=== PATIENT | female | born 1985 | race Caucasian/White ===

== ENCOUNTER 2021-04-18 23:49 | Inpatient (IN) | payer MEDICARE, MEDICAID, SELFPAY ==
[2021-04-19 00:15] VITALS: BP 91/65; PULSE 105; RESP 18; TEMP 36.3; O2SAT 98
[2021-04-19 04:04] VITALS: BMI 35.5
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
--- NOTE | 2021-04-19 06:08 | PC.NURSE ---
Methadone maintenance dose was verified by this TW [facility]. According to Ana Maria Torres at this facility, patient is in good standing, was last dose at 0842 on 04/19/21 at 163 mg daily.
[2021-04-19 08:50] LABS: MANUAL DIFF FLAG NO
[2021-04-19 09:04] LABS: Basophils Percent Auto 0.5 % (0-2); Eosinophils Absolute Auto 0.2 X10*3/uL (0.0-0.4); Hematocrit 38.2 % (37-47); Imm Gran Abs Auto 0.01 X10*3/uL (0.00-0.03); Imm Gran Pct Auto 0.2 % (0.0-0.4); Lymphocytes Absolute Auto 1.8 X10*3/uL (1.2-4.9); Lymphocytes Percent Auto 27.8 % (20-40); Mean Corpuscular Hemoglobin 29.5 pg (27.0-33.0); Mean Corpuscular Volume 86.6 fL (80-98); Mean Platelet Volume 10.7 fL (9.4-12.3); Monocytes Absolute Auto 0.5 X10*3/uL (0.1-1.2); Monocytes Percent Auto 7.2 % (2-11); Neutrophils Absolute Auto 3.9 X10*3/uL (2.0-8.3); Neutrophils Percent Auto 61.3 % (45-73); Platelet Count 210 X10*3/uL (160-400); Red Blood Count 4.41 X10*6/uL (4.20-5.50); White Blood Count 6.4 X10*3/uL (4.8-10.8)
[2021-04-19 09:40] LABS: Alanine Aminotransferase 12 U/L (0-31); Albumin Level 4.2 g/dL (3.5-5.0); Alkaline Phosphatase 86 U/L (39-117); Anion Gap 14 (12-20); Aspartate Amino Transferase 18 U/L (5-31); Bilirubin Total 0.5 mg/dL (0.0-1.0); Blood Urea Nitrogen 12 mg/dL (9-16); Calcium 9.2 mg/dL (8.4-10.2); Carbon Dioxide 26 mmol/L (22-29); Chloride 104 mmol/L (96-108); Creatinine Clr Calc Pharmacy 131.2; Estimated Glomerular Filt Rate > 60; Glucose Fasting 102 mg/dL (60-99); Potassium 4.6 mmol/L (3.3-5.1); Sodium 139 mmol/L (135-145); Total Protein 6.7 g/dL (6.5-8.0)
[2021-04-19] MEDS: LORazepam 1 MG TABLET PO ×2 (10:21→17:41)
[2021-04-19] MEDS: Benztropine Mesylate 1 MG TABLET PO ×2 (10:38→17:42)
[2021-04-19] MEDS: Benztropine Mesylate 2 MG/2 ML VIAL 1 MG IM (10:54)
--- NOTE | 2021-04-19 11:11 | PC.NURSE ---
Patient approached desk reporting my jaw is tight . Reports she is having allergic reaction to Haldol . PO Benztropine 1mg administered with pending effects. Patient continued to C/O clenching jaw, difficulty with swallow. Kirsty Landry REFRIGERATION OPERATOR consulted, order for IM Benztropine obtained and administered. Effects pending. BP 144/84 p132.
--- NOTE | 2021-04-19 11:29 | PC.NURSE ---
Patient reports positive response from IM Benztropine 1mg BP 116/59 P92. No longer clenching jaw. Pain from 10 down to 4.
[2021-04-19 17:25] VITALS: BP 101/51; PULSE 89; TEMP 36.7
[2021-04-19] MEDS: Nicotine Polacrilex 2 MG GUM BUCCAL ×2 (17:35→20:52)
[2021-04-19] MEDS: Acetaminophen 325 MG TABLET 650 MG PO (17:41)
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
[2021-04-19] MEDS: traZODone HCL 50 MG TABLET PO (20:42)
[2021-04-19] MEDS: hydrOXYzine HCL 25 MG TABLET PO (20:43)
[2021-04-20] MEDS: LORazepam 1 MG TABLET PO ×4 (04:50→19:56)
[2021-04-20 06:25] VITALS: BP 88/44; PULSE 77; RESP 18; TEMP 36.4; O2SAT 97
--- NOTE | 2021-04-20 07:06 | PM.EVENT ---
Event Note Date of Service: 04/19/21 Event Note: Tried to see the pt for admission H&P but pt refused to see me
[2021-04-20 10:18] LABS: Cholesterol 210 mg/dL; HDL Cholesterol 30 mg/dL; LDL Cholesterol Calculated 151 mg/dl; Triglycerides 148 mg/dL
[2021-04-20 10:19] LABS: Estimated Average Glucose 105 mg/dL; Hemoglobin A1C 114.7675 umol/L; Hemoglobin A1c % 5.3 %
[2021-04-20 10:53] VITALS: BP 106/58; PULSE 88
[2021-04-20 16:10] VITALS: BP 120/58; PULSE 105; TEMP 37.1
--- NOTE | 2021-04-20 19:24 | HO.PSYCHPN ---
Subjective Subjective Date of Service: 04/20/21 Reason For Visit: PTSD, Opiate Use Disorder Subjective Notes: Conditional Voluntary and 3 Day Healthcare Proxy: No Guardianship: No Medical Problems Affecting Mental Status: No Interim History: Reports anxiety 07/28. Isolative. Denies sx to TW. Hoping for discharge on 04/21. States she came in to re-establish her prescriptions. Medication Compliance: Yes Side effects from medications: No Attending Groups: No Review of Systems Review of Systems Yes all other systems are reviewed and are negative (denies) Reports behavioral changes Psychiatric: Reports behavioral changes and Reports difficulty concentrating Mental Status Exam Mental Status Exam Patient Appearance: Appropriate Patient Orientation: Person, Place, Time and Situation Level of Consciousness: Awake and Alert Patient Behavior: Appropriate and Cooperative Mood Description: Calm Affect Description: Calm Patient Cognition Impaired: No Ability to Follow Directions: Good Speech Pattern: Appropriate and Spontaneous Speech Memory Description: Intact Hallucinations: None Delusions: Not Present Thought Process: Intact Thought Content: positive for Intact Depressive Symptoms: Increased Anxiety (reports to team) Judgement: Fair Diagnostics Vital Signs (24Hr): Vital Signs - 24 hr 04/20/21 06:25 04/20/21 10:53 04/20/21 16:10 Temperature 97.6 F 98.7 F Pulse Rate 77 88 105 H Respiratory Rate 18 Blood Pressure 88/44 L 106/58 L 120/58 L Pulse Oximetry 97 Body Mass Index 35.5 Labs Results: 04/19/21 08:17 04/19/21 08:17 Labs: Laboratory Results - last 48 hr 04/19/21 04/19/21 04/20/21 08:17 08:17 08:42 WBC 6.4 RBC 4.41 Hgb 13.0 Hct 38.2 MCV 86.6 MCH 29.5 MCHC 34.0 RDW 13.0 Plt Count 210 MPV 10.7 Immature Gran % (Auto) 0.2 Neut % (Auto) 61.3 Lymph % (Auto) 27.8 [place] % (Auto) 7.2 Eos % (Auto) 3.0 Baso % (Auto) 0.5 Lymph # (Auto) 1.8 [place] # (Auto) 0.5 Eos # (Auto) 0.2 Baso # (Auto) 0.0 Abs Immat Gran (auto) 0.01 Absolute Neuts (auto) 3.9 Absolute Nucleated RBC 0.000 Nucleated RBC % (auto) 0.0 Sodium 139 Potassium 4.6 Chloride 104 Carbon Dioxide 26 Anion Gap 14 BUN 12 Creatinine 0.72 Estim Creat Clear Calc 131.2 Estimated GFR > 60 Fasting Glucose 102 H Estimat Average Glucose 105 Hemoglobin A1c % 5.3 Calcium 9.2 Total Bilirubin 0.5 AST 18 ALT 12 Alkaline Phosphatase 86 Total Protein 6.7 Albumin 4.2 Triglycerides Cholesterol LDL Cholesterol, Calc HDL Cholesterol 04/20/21 08:42 WBC RBC Hgb Hct MCV MCH MCHC RDW Plt Count MPV Immature Gran % (Auto) Neut % (Auto) Lymph % (Auto) [place] % (Auto) Eos % (Auto) Baso % (Auto) Lymph # (Auto) [place] # (Auto) Eos # (Auto) Baso # (Auto) Abs Immat Gran (auto) Absolute Neuts (auto) Absolute Nucleated RBC Nucleated RBC % (auto) Sodium Potassium Chloride Carbon Dioxide Anion Gap BUN Creatinine Estim Creat Clear Calc Estimated GFR Fasting Glucose Estimat Average Glucose Hemoglobin A1c % Calcium Total Bilirubin AST ALT Alkaline Phosphatase Total Protein Albumin Triglycerides 148 Cholesterol 210 LDL Cholesterol, Calc 151 HDL Cholesterol 30 Medications Medications Current Medications Generic Name Dose Route Start Last Admin Trade Name Freq PRN Reason Stop Dose Admin Acetaminophen 650 mg 04/19/21 06:34 04/19/21 17:41 Acetaminophen 325 Mg Tablet PO 650 mg Q6H PRN Administration Headache/Pain Mild Scale (1-3) Al Hydroxide/Mg Hydroxide 30 ml 04/19/21 06:34 Magnesium Hydrox/Alum Hydrox 30 Ml Oral.Susp PO Q6H PRN Heartburn/Nausea Benztropine Mesylate 1 mg 04/19/21 06:39 04/19/21 17:42 Benztropine Mesylate 1 Mg Tablet PO 1 mg Q4H PRN Administration Extrapyramidal Effects Haloperidol 5 mg 04/19/21 06:39 Haloperidol 5 Mg Tablet PO Q4H PRN anxiety/restlessness Hydroxyzine HCl 25 mg 04/19/21 06:34 04/19/21 20:43 Hydroxyzine Hcl 25 Mg Tablet PO 25 mg BEDTIME PRN Administration Anxiety Lorazepam 1 mg 04/19/21 06:39 04/20/21 15:17 Lorazepam 1 Mg Tablet PO 1 mg Q4H PRN Administration anxiety/restlessness Magnesium Hydroxide 30 ml 04/19/21 06:34 Milk Of Magnesia 30 Ml Oral.Susp PO DAILY PRN Constipation Methadone HCl 160 mg 04/19/21 09:00 04/20/21 09:45 Methadone Hcl 1 Mg/0.1 Ml Oral.Conc PO 160 mg DAILY GAGE Administration Nicotine Polacrilex 2 mg 04/19/21 06:36 04/19/21 20:52 Nicotine Polacrilex 2 Mg Gum BUCCAL 2 mg Q2H PRN Administration Nicotine Cravings Nicotine Polacrilex 2 mg 04/20/21 16:34 Nicotine Polacrilex 2 Mg Gum BUCCAL Q2H PRN Nicotine Cravings Trazodone HCl 50 mg 04/19/21 06:34 04/19/21 20:42 Trazodone Hcl 50 Mg Tablet PO 50 mg BEDTIME PRN Administration Insomnia Allergies Allergies Allergy/AdvReac Type Severity Reaction Status Date / Time clindamycin Allergy Unknown Stomach Verified 04/19/21 05:04 Upset Penicillins Allergy Unknown Unknown Verified 04/19/21 05:04 risperidone [From Risperdal] Allergy Unknown Unknown Verified 04/19/21 05:04 lamotrigine [From Lamictal] AdvReac Unknown Unknown Verified 04/19/21 05:04 Assessment & Plan Assessment & Plan (1) Opioid abuse: Status: Acute Code(s): F11.10 - Opioid abuse, uncomplicated (2) Methadone maintenance therapy patient: Status: Acute Code(s): F11.20 - Opioid dependence, uncomplicated (3) Major depression: Status: Acute Code(s): F32.9 - Major depressive disorder, single episode, unspecified Assessment and Plan: 36 yo female, mother of 4 with reported SI with plan to jump [place] [address] [facility] due to medications being taken. Pt reports she and mother pursued a Section XIIE to help her to get treatment for meds to restart. Plan: Continue current regime Gather collateral information from providers TDN to 04/21/21. Greater than 50% of the session was spent on counseling and/or coordination of care Reason for contiued inpatient stay Substantial Risk for: harm to self, inability to function and rapid decompensation
[2021-04-20] MEDS: hydrOXYzine HCL 25 MG TABLET PO (19:56)
[2021-04-20] MEDS: traZODone HCL 50 MG TABLET PO ×2 (19:56→23:35)
[2021-04-21 06:40] VITALS: BP 99/51; PULSE 72; RESP 18; TEMP 36.2; O2SAT 98
[2021-04-21] MEDS: LORazepam 1 MG TABLET PO ×2 (06:48→10:55)
[2021-04-21] MEDS: Nicotine Polacrilex 2 MG GUM BUCCAL (12:26)
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
== END 2021-04-21 13:06 | disposition home or self-care (01) | DRG 881 ==
PROVIDERS: Psychiatry & Neurology Psychiatry; Admitting Provider Psychiatry & Neurology Psychiatry; Visit Provider Clinical Nurse Specialist Psychiatric/Mental Health, Adult
DX: F32.9 Major depressive disorder, single episode, unspecified (principal); R45.851 Suicidal ideations; F11.20 Opioid dependence, uncomplicated; F43.10 Post-traumatic stress disorder, unspecified; G40.909 Epilepsy, unspecified, not intractable, without status epilepticus; Z88.0 Allergy status to penicillin; Z79.899 Other long term (current) drug therapy
CPT/HCPCS: 36415; 80053; 80061; 83036; 85025; J0515

== ENCOUNTER 2022-02-16 14:22 | Emergency (ER) | payer OTHER, SELFPAY ==
--- NOTE | ~2022-02-16 | CT_ITS ---
EXAMINATION: CT ABDOMEN AND PELVIS WITH CONTRAST CLINICAL INFORMATION: Dysuria and left flank pain. COMPARISON: None TECHNIQUE: Multidetector volumetric images were obtained from the superior aspect of the liver through the pubic symphysis following administration 85 mL of Omnipaque 350 intravenous contrast. Sagittal and coronal reformatted images were obtained on the technologist's workstation. Oral Contrast: No. This CT examination was performed using dose optimization techniques as appropriate, variously including the following: *Automated exposure control. *Adjustment of mA and/or kV according to patient size (this includes techniques or standardized protocols for targeted exams where dose is matched to indication/reason for exam; i.e. extremities or head). *Use of iterative reconstruction technique. DLP: 890 mGy-cm FINDINGS: LUNG BASES: No focal consolidation or pleural effusion. LIVER, GALLBLADDER, AND BILIARY TREE: The liver is enlarged measuring 20.2 cm craniocaudally but is otherwise normal in shape and attenuation without discrete focal abnormalities. There is mild intrahepatic and extrahepatic biliary ductal dilatation with the CBD that measures of to 0.8 cm. No choledocholithiasis is identified. The gallbladder is decompressed limiting assessment of wall thickening. There is however no significant pericholecystic fat stranding or free fluid to suspected acute cholecystitis. No cholelithiasis is identified. PANCREAS: Unremarkable. SPLEEN: The spleen is enlarged measuring 14 cm craniocaudally. No discrete focal abnormalities are identified. ADRENAL GLANDS: Unremarkable. KIDNEYS AND URETERS: The kidneys are normal in size, shape, and attenuation. No hydronephrosis, hydroureter, or calculi seen. No perinephric stranding. BLADDER: Unremarkable. GASTROINTESTINAL TRACT: Small hiatal hernia. Mildly distended stomach filled with debris. The small bowel is nondilated with fecalization of some loops of distal ileum. Normal appendix. No pericolonic inflammatory changes or evidence of bowel obstruction. Moderate colonic and rectal stool burden. ABDOMINAL WALL: No significant hernia is appreciated. LYMPH NODES: Prominent retroperitoneal lymph nodes measuring up to 1 cm in short axis. VASCULAR: Unremarkable. PELVIC VISCERA: Unremarkable. OSSEOUS STRUCTURES: No acute or aggressive-appearing osseous abnormalities. CT/CT abdomen pelvis w con IMPRESSION: 1. Mild nonspecific biliary ductal dilatation without definite choledocholithiasis or obstructive abnormalities. If indicated, correlation with MRCP could be obtained. 2. Indeterminate hepatosplenomegaly. 3. Fecalization of the distal small bowel with moderate colonic and rectal stool burden suggesting slow transit and constipation. 4. Nonspecific borderline enlarged retroperitoneal lymph nodes which in the setting of hepatosplenomegaly could potentially be associated with a lymphomatous neoplasia. However, these are fairly nonspecific and should be follow up depending on patient's risk factors and clinical picture.
[2022-02-16 15:25] VITALS: BP 140/76; PULSE 97; RESP 19; TEMP 36.1; O2SAT 97; BMI 36.3
[2022-02-16 15:47] LABS: UPreg QC Valid YES; Urine Pregnancy NEGATIVE (NEGATIVE)
[2022-02-16 15:48] LABS: Appearance Urine CLOUDY; Color Urine YELLOW; Glucose Urine UA NEG (NEG); Leukocyte Esterase Urine 2+ (NEG); Nitrite Urine POS (NEG); PH 5.5 (5.0-8.0); Specific Gravity - Urine >= 1.030 (1.005-1.025); UACC Culture Trigger YES; Urine Blood TRACE (NEG); Urine Ketones NEG (NEG); Urine Protein NEG (NEG-TRACE)
[2022-02-16 17:23] LABS: Bacteria Urine 3+ /LPF; Squamous Epithelial Cell Urine 3+ /LPF
--- NOTE | 2022-02-16 17:58 | ED_ITS ---
HPI - Female Genitourinary General Chief complaint: Urogenital-Female <JAMI Juarez - Last Filed: 02/16/22 18:21> Stated complaint: UTI? <JAIM Juarez - Last Filed: 02/16/22 18:21> Time Seen by Provider: 02/16/22 17:15 <JAMI Juarez Last Filed: 02/16/22 18:21> Source: patient <JAMI Juarez Last Filed: 02/16/22 18:21> Mode of arrival: ambulatory <JAMI Juarez Last Filed: 02/16/22 18:21> Limitations: no limitations <JAMI Juarez Last Filed: 02/16/22 18:21> History of Present Illness HPI Narrative: 37-year-old female with a past medical history of seizure disorder, major depression, methadone maintenance therapy due to opioid abuse and asthma presenting to the ED with complaints of suprapubic abdominal pain/cramping with associated dysuria/urinary frequency and urgency for the past week and a half and now the suprapubic abdominal pain is radiating to her lower back/left back. She reports over the past 2 days she has developed some chills and fevers. She reports that she has had kidney stones and pyelonephritis in the past. She reports she also has the foul smell to her urine although denies any thoughts of STDs reports that she has not been sexually active in a while and does not believe she has gonorrhea chlamydia therefore she is refusing any STD testing. She reports that she will be tested for bacterial vaginosis/yeast and Trichomonas. She denies any dizziness, headaches, neck pain/stiffness, trouble swallowing or breathing, chest pain or shortness of breath, nausea/vomiting, rashes, recent falls or trauma, hematuria, abnormal vaginal discharge, abnormal lesions or rashes to the vaginal area or anywhere on the body, constipation, black or bloody stools, thoughts of STDs or any other symptoms complaints or concerns at this time. <JAMI Juarez Last Filed: 02/16/22 18:21> MD elicited complaint: dysuria, UTI and back pain <JAMI Juarez Last Filed: 02/16/22 18:21> Pertinent past history: recurrent UTIs and pyelonephritis <JAMI Juarez - Last Filed: 02/16/22 18:21> Onset (ago): week(s) (1.5 weeks ) <JAMI Juarez - Last Filed: 02/16/22 18:21> Severity: moderate <JAMI Juarez - Last Filed: 02/16/22 18:21> Female Urogenital Radiation: L Flank (and back) <JAMI Juarez - Last Filed: 02/16/22 18:21> Severity scale (1-10): 8 <JAMI Juarez - Last Filed: 02/16/22 18:21> Quality of pain: burning and aching <JAMI Juarez - Last Filed: 02/16/22 18:21> Consistency: constant and progressively worsening <JAMI Juarez - Last Filed: 02/16/22 18:21> Vaginal discharge: none <JAMI Juarez - Last Filed: 02/16/22 18:21> Vaginal bleeding: none <JAMI Juarez - Last Filed: 02/16/22 18:21> Urinary symptoms: Dysuria, Urgency, Frequency, Foul Smelling Urine, Difficulty Urinating and Flank Pain <JAMI Juarez - Last Filed: 02/16/22 18:21> Exacerbating factors: urination <JAMI Juarez - Last Filed: 02/16/22 18:21> Relieving factors: none <JAMI Juarez - Last Filed: 02/16/22 18:21> Associated symptoms: abdominal pain and back pain <JAMI Juarez - Last Filed: 02/16/22 18:21> Treatment prior to arrival: none <JAMI Juarez - Last Filed: 02/16/22 18:21> Sexual activity: No <JAMI Juarez - Last Filed: 02/16/22 18:21> Patient : No <JAMI Juarez - Last Filed: 02/16/22 18:21> Related Data Home medications: Home Medications Medication Instructions Recorded Confirmed methadone 163 mg PO DAILY 04/19/21 04/19/21 Previous Rx's Medication Instructions Recorded clonazepam 1 mg tablet 1 tab PO BID #14 tab 04/21/21 gabapentin 600 mg tablet 1 tab PO TID #21 tab 04/21/21 naloxone 4 mg/actuation nasal 4 mg INTRANASAL Q2M PRN #2 ea 04/21/21 spray (Narcan) topiramate 100 mg tablet 1 tab PO DAILY #7 tab 04/21/21 <JAMI Juarez - Last Filed: 02/16/22 18:21> Allergies/Adverse reactions: Allergies Allergy/AdvReac Type Severity Reaction Status Date / Time clindamycin Allergy Unknown Stomach Verified 04/19/21 05:04 Upset Penicillins Allergy Unknown Unknown Verified 04/19/21 05:04 risperidone [From Risperdal] Allergy Unknown Unknown Verified 04/19/21 05:04 lamotrigine [From Lamictal] AdvReac Unknown Unknown Verified 04/19/21 05:04 <JAMI Juarez - Last Filed: 02/16/22 18:21> Review of Systems Review of Systems: Constitutional : + Fever, + Chills ENT/Mouth : No sore throat, No Rhinorrhea Eyes: No Eye Pain, No Redness Cardiovascular : No Chest Pain, No SOB Respiratory : No Cough, No Sputum, No Wheezing Gastrointestinal : + abdominal pain, No Nausea, No Vomiting, No Diarrhea Genitourinary : + Dysuria, + Urinary Frequency, + left flank pain, No pelvic pain, No vaginal discharge, no hematuria, no irregular bleeding Musculoskeletal : + lower back pain, No Myalgias Skin : No rash Neuro : No Weakness, No Headache Psych : No Anxiety/Panic, No Depression Heme/Lymph: No bruising, No Lymphadenopathy Endocrine : No Polyuria, No Polydipsia <JAMI Juarez - Last Filed: 02/16/22 18:21> Yes all other systems are reviewed and are negative <JAMI Juarez - Last Filed: 02/16/22 18:21> [facility] Past Medical History Attestation statement: The following information was validated with the patient. <JAMI Juarez - Last Filed: 02/16/22 18:21> Medical History: Medical History Active asthma delivery delivered Major depression Methadone maintenance therapy patient Opioid abuse Seizure disorder <JAMI Juarez Last Filed: 02/16/22 18:21> Social History Social History: Social History Unable to assess alcohol history related to: Unknown Cigarettes Per Day: 10 Years Smoked: 20 e-Cigarette/Vaping Use: Currently Using Second Hand Smoke Exposure: No Substance Use Type: Heroin Advance Directives: No Advance Directives Information Provided: Yes Patient : No service: No Sexual orientation: Straight/Heterosexual <JAMI Juarez - Last Filed: 02/16/22 18:21> Physical Exam Vital Signs: Vital Signs: Last Vital Signs Temp 97 F 02/16/22 15:25 Pulse 97 02/16/22 15:25 Resp 19 02/16/22 15:25 BP 140/76 H 02/16/22 15:25 Pulse Ox 97 02/16/22 15:25 BMI result Body Mass Index 36.3 vital signs have been reviewed as normal and appeared to be correct. Blood pressure 140/76 Heart rate normal. Respiration rate normal. Temperature normal. Oxygen saturation normal. <JAMI Juarez - Last Filed: 02/16/22 18:21> Vital Signs: Last Vital Signs Temp 97 F 02/16/22 15:25 Pulse 97 02/16/22 15:25 Resp 19 02/16/22 15:25 BP 140/76 H 02/16/22 15:25 Pulse Ox 97 02/16/22 15:25 BMI result Body Mass Index 36.3 <JAMI Powell - Last Filed: 02/16/22 22:56> Appearance: Alert. Oriented X3. No acute distress. Head: Normal external exam. Normocephalic. Eyes: PERRLA. EOMI. Conjunctiva and sclera normal. Eyelids normal. ENT: Pharynx normal. Uvula midline. Moist mucous membranes. No trismus noted. No drooling noted. No muffled voice noted. Neck: Normal inspection. Neck supple. FROM. No adenopathy. No meningeal signs. CVS: Normal heart rate and rhythm. Heart sound normal. No murmurs noted. Pulses normal throughout. Respiratory: No respiratory distress. Painless inspiration. Breath sounds normal. No wheezes/rales/rhonchi noted. Chest nontender. No accessory muscle usage noted or decreased air movement noted. Abdomen: Soft and mild suprapubic abdominal tenderness Nondistended. No guarding. No rigidity. Bowel sounds normal in all 4 quadrants. No distention noted. No organomegaly noted. No visible injury noted. No rebound tenderness. Negative Rovsing sign. Negative obturator's sign. Negative psoas sign. Negative Montes sign. Back: + mild left flank CVA tenderness. Full range of motion noted. No signs of trauma. Patient neuro intact bilaterally and distally in all 4 extremities. Reflexes intact bilaterally and distally in all 4 extremities. No rashes/lesion/induration/fluctuance or signs of infection noted. Skin: Skin warm and dry. Normal skin color. Normal skin turgor. No rashes/lesions/lacerations noted. Extremities: Extremities exhibit normal range of motion. Extremities nontender. Neuro: Oriented X 3. No motor deficit. No sensory deficit. Reflexes normal. Normal steady gait. CN's II-XII intact bilaterally? <JAMI Juarez - Last Filed: 02/16/22 18:21> Course Course Course Narrative: 17:20pm - 37-year-old female with a past medical history of seizure disorder, major depression, methadone maintenance therapy due to opioid abuse and asthma pr esenting to the ED with complaints of suprapubic abdominal pain/cramping with associated dysuria/urinary frequency and urgency for the past week and a half and now the suprapubic abdominal pain is radiating to her lower back/left back. She reports over the past 2 days she has developed some chills and fevers. She reports that she has had kidney stones and pyelonephritis in the past. She reports she also has the foul smell to her urine although denies any thoughts of STDs reports that she has not been sexually active in a while and does not believe she has gonorrhea chlamydia therefore she is refusing any STD testing. She reports that she will be tested for bacterial vaginosis/yeast and Tr ichomonas. - Patient wants to self swab for bacterial vaginosis/yeast/Trichomonas she is refusing a vaginal/speculum exam. - Otherwise a UA was obtained while the patient was in the waiting room and revealed positive nitrates with +2 leukocytes and 76-150 white blood cells consistent with UTI. Patient negative for . Plan: Labs, CT scan abdomen pelvis with IV contrast to evaluate for possible kidney stones versus pyelonephritis. Provide some IV fluids and re-evaluate. <JAMI Juarez - Last Filed: 02/16/22 18:21> Reevaluation(s) Reevaluation #1: Sign out to TANESHA Rodriguez pending labs, CT scan abdomen pelvis with IV contrast. <JAMI Juarez - Last Filed: 02/16/22 18:21> Time: 18:18 <JAMI Juarez Last Filed: 02/16/22 18:21> Reevaluation #2: CBC within normal limits. Chemistry with no acute electrolyte abnormalities. BUN slightly elevated however patient tolerating fluids by mouth. Transaminases slightly elevated. Urine negative. Urine positive for UTI. CT of abdomen and pelvis pending. <JAMI Powell - Last Filed: 02/16/22 22:56> Time: 21:33 <JAMI Powell Last Filed: 02/16/22 22:56> Reevaluation #3: CT of the abdomen pelvis shows nonspecific biliary duct dilation without definite choledocholithiasis or obstructive abnormalities. It shows a paddle splenomegaly. Moderate amount of stool suggesting constipation. And there are enlarged retroperitoneal lymph nodes. CT discussed with patient and attached her discharge though she can follow-up with her PCP. Patient telling staff members that she is homicidal towards her roommate patient is unable to return unless cleared by Psychiatry. Patient feels unsafe to return she does not want to return and she tells staff members here in the emergency department that if she goes back she will start using opiates again and hurt herself. At this time a BH and consult has been put in. Patient has been medically cleared. She was given Levaquin earlier IV. Will continue with antibiotic treatment. At this time patient will be placed in physician observation to allow more time to be evaluated by the behavioral health team. At this time I will start patient on Macrobid p.o. b.i.d. scheduled for UTI. I do not feel comfortable continuing Levaquin since patient is on methadone and Levaquin is a QT prolonging agent. No baseline EKG. At this time will continue on Macrobid p.o. b.i.d.. Patient will be moved to the pot and placed on a Section 12. Will continue to monitor. <JAMI Powell - Last Filed: 02/16/22 22:56> Time: 22:48 <JAMI Powell - Last Filed: 02/16/22 22:56> MDM - Female Genitourinary Medical Records Attestation: I reviewed the patient's medical records. <JAMI Juarez - Last Filed: 02/16/22 18:21> Lab Data Attestation: I reviewed the patient's lab results. <JAMI Juarez - Last Filed: 02/16/22 18:21> Result diagrams: : 02/16/22 18:10 02/16/22 19:43 <JAMI Juarez - Last Filed: 02/16/22 18:21> Labs: Lab Results 02/16/22 02/16/22 02/16/22 Range/Units 15:29 15:29 18:10 WBC 5.5 (4.8-10.8) X10*3/uL RBC 4.20 (4.20-5.50) X10*6/uL Hgb 12.6 (12.0-16.0) g/dl Hct 38.2 (37.0-47.0) % MCV 91.0 (80.0-98.0) fL MCH 30.0 (27.0-33.0) pg MCHC 33.0 (31.0-35.0) g/dl RDW 13.2 (11.0-16.0) % Plt Count 107 L (160-400) X10*3/uL MPV 11.7 (9.4-12.3) fL Immature Gran % (Auto) 0.2 (0.0-0.4) % Neut % (Auto) 50.2 (45-73) % Lymph % (Auto) 34.9 (20-40) % [place] % (Auto) 9.1 (2-11) % Eos % (Auto) 5.1 H (0-4) % Baso % (Auto) 0.5 (0-2) % Lymph # (Auto) 1.9 (1.2-4.9) X10*3/uL [place] # (Auto) 0.5 (0.1-1.2) X10*3/uL Eos # (Auto) 0.3 (0.0-0.4) X10*3/uL Baso # (Auto) 0.0 (0.0-0.2) X10*3/uL Abs Immat Gran (auto) 0.01 (0.00-0.03) X10*3/uL Absolute Neuts (auto) 2.8 (2.0-8.3) x10*3/uL Absolute Nucleated RBC 0.000 (0.0-0.012) X10*3/uL Nucleated RBC % (auto) 0.0 (0.0-0.2) /100WBC Sodium (135-145) mmol/L Potassium (3.3-5.1) mmol/L Chloride (96-108) mmol/L Carbon Dioxide (22-29) mmol/L Anion Gap (12-20) BUN (9-16) mg/dL Creatinine (0.5-1.4) mg/dL Estim Creat Clear Calc Estimated GFR Random Glucose (60-115) mg/dL Lactic Acid (0.5-2.0) mmol/L Calcium (8.4-10.2) mg/dL Magnesium (1.6-2.6) mg/dL Total Bilirubin (0.0-1.0) mg/dL AST (5-31) U/L ALT (0-31) U/L Alkaline Phosphatase (39-117) U/L Total Protein (6.5-8.0) g/dL Albumin (3.5-5.0) g/dL Urine Color YELLOW Urine Appearance CLOUDY Urine pH 5.5 (5.0-8.0) Ur Specific Caret >= 1.030 H (1.005-1.025) Urine Protein NEG (NEG-TRACE) MG/DL Urine Glucose (UA) NEG (NEG) MG/DL Urine Ketones NEG (NEG) MG/DL Urine Blood TRACE (NEG) Urine Nitrite POS H (NEG) Ur Leukocyte Esterase 2+ H (NEG) Urine RBC 1-4 (0) /HPF Urine WBC 76-150 H (0-4) /HPF Ur Squamous Epith Cells 3+ /LPF Urine Bacteria 3+ /LPF Urine Test NEGATIVE (NEGATIVE) 02/16/22 02/16/22 Range/Units 18:10 19:43 WBC (4.8-10.8) X10*3/uL RBC (4.20-5.50) X10*6/uL Hgb (12.0-16.0) g/dl Hct (37.0-47.0) % MCV (80.0-98.0) fL MCH (27.0-33.0) pg MCHC (31.0-35.0) g/dl RDW (11.0-16.0) % Plt Count (160-400) X10*3/uL MPV (9.4-12.3) fL Immature Gran % (Auto) (0.0-0.4) % Neut % (Auto) (45-73) % Lymph % (Auto) (20-40) % [place] % (Auto) (2-11) % Eos % (Auto) (0-4) % Baso % (Auto) (0-2) % Lymph # (Auto) (1.2-4.9) X10*3/uL [place] # (Auto) (0.1-1.2) X10*3/uL Eos # (Auto) (0.0-0.4) X10*3/uL Baso # (Auto) (0.0-0.2) X10*3/uL Abs Immat Gran (auto) (0.00-0.03) X10*3/uL Absolute Neuts (auto) (2.0-8.3) x10*3/uL Absolute Nucleated RBC (0.0-0.012) X10*3/uL Nucleated RBC % (auto) (0.0-0.2) /100WBC Sodium 139 (135-145) mmol/L Potassium 3.9 (3.3-5.1) mmol/L Chloride 105 (96-108) mmol/L Carbon Dioxide 27 (22-29) mmol/L Anion Gap 11 L (12-20) BUN 18 H (9-16) mg/dL Creatinine 0.86 (0.5-1.4) mg/dL Estim Creat Clear Calc 110.1 Estimated GFR > 60 Random Glucose 117 H (60-115) mg/dL Lactic Acid 1.5 (0.5-2.0) mmol/L Calcium 8.6 D (8.4-10.2) mg/dL Magnesium 2.3 (1.6-2.6) mg/dL Total Bilirubin 0.2 (0.0-1.0) mg/dL AST 34 H D (5-31) U/L ALT 57 H (0-31) U/L Alkaline Phosphatase 91 (39-117) U/L Total Protein 6.2 L (6.5-8.0) g/dL Albumin 3.7 (3.5-5.0) g/dL Urine Color Urine Appearance Urine pH (5.0-8.0) Ur Specific Caret (1.005-1.025) Urine Protein (NEG-TRACE) MG/DL Urine Glucose (UA) (NEG) MG/DL Urine Ketones (NEG) MG/DL Urine Blood (NEG) Urine Nitrite (NEG) Ur Leukocyte Esterase (NEG) Urine RBC (0) /HPF Urine WBC (0-4) /HPF Ur Squamous Epith Cells /LPF Urine Bacteria /LPF Urine Test (NEGATIVE) <JAMI Juarez - Last Filed: 02/16/22 18:21> Lab Results 02/16/22 02/16/22 02/16/22 Range/Units 15:29 15:29 18:10 WBC 5.5 (4.8-10.8) X10*3/uL RBC 4.20 (4.20-5.50) X10*6/uL Hgb 12.6 (12.0-16.0) g/dl Hct 38.2 (37.0-47.0) % MCV 91.0 (80.0-98.0) fL MCH 30.0 (27.0-33.0) pg MCHC 33.0 (31.0-35.0) g/dl RDW 13.2 (11.0-16.0) % Plt Count 107 L (160-400) X10*3/uL MPV 11.7 (9.4-12.3) fL Immature Gran % (Auto) 0.2 (0.0-0.4) % Neut % (Auto) 50.2 (45-73) % Lymph % (Auto) 34.9 (20-40) % [place] % (Auto) 9.1 (2-11) % Eos % (Auto) 5.1 H (0-4) % Baso % (Auto) 0.5 (0-2) % Lymph # (Auto) 1.9 (1.2-4.9) X10*3/uL [place] # (Auto) 0.5 (0.1-1.2) X10*3/uL Eos # (Auto) 0.3 (0.0-0.4) X10*3/uL Baso # (Auto) 0.0 (0.0-0.2) X10*3/uL Abs Immat Gran (auto) 0.01 (0.00-0.03) X10*3/uL Absolute Neuts (auto) 2.8 (2.0-8.3) x10*3/uL Absolute Nucleated RBC 0.000 (0.0-0.012) X10*3/uL Nucleated RBC % (auto) 0.0 (0.0-0.2) /100WBC Sodium (135-145) mmol/L Potassium (3.3-5.1) mmol/L Chloride (96-108) mmol/L Carbon Dioxide (22-29) mmol/L Anion Gap (12-20) BUN (9-16) mg/dL Creatinine (0.5-1.4) mg/dL Estim Creat Clear Calc Estimated GFR Random Glucose (60-115) mg/dL Lactic Acid (0.5-2.0) mmol/L Calcium (8.4-10.2) mg/dL Magnesium (1.6-2.6) mg/dL Total Bilirubin (0.0-1.0) mg/dL AST (5-31) U/L ALT (0-31) U/L Alkaline Phosphatase (39-117) U/L Total Protein (6.5-8.0) g/dL Albumin (3.5-5.0) g/dL Urine Color YELLOW Urine Appearance CLOUDY Urine pH 5.5 (5.0-8.0) Ur Specific Caret >= 1.030 H (1.005-1.025) Urine Protein NEG (NEG-TRACE) MG/DL Urine Glucose (UA) NEG (NEG) MG/DL Urine Ketones NEG (NEG) MG/DL Urine Blood TRACE (NEG) Urine Nitrite POS H (NEG) Ur Leukocyte Esterase 2+ H (NEG) Urine RBC 1-4 (0) /HPF Urine WBC 76-150 H (0-4) /HPF Ur Squamous Epith Cells 3+ /LPF Urine Bacteria 3+ /LPF Urine Test NEGATIVE (NEGATIVE) 02/16/22 02/16/22 Range/Units 18:10 19:43 WBC (4.8-10.8) X10*3/uL RBC (4.20-5.50) X10*6/uL Hgb (12.0-16.0) g/dl Hct (37.0-47.0) % MCV (80.0-98.0) fL MCH (27.0-33.0) pg MCHC (31.0-35.0) g/dl RDW (11.0-16.0) % Plt Count (160-400) X10*3/uL MPV (9.4-12.3) fL Immature Gran % (Auto) (0.0-0.4) % Neut % (Auto) (45-73) % Lymph % (Auto) (20-40) % [place] % (Auto) (2-11) % Eos % (Auto) (0-4) % Baso % (Auto) (0-2) % Lymph # (Auto) (1.2-4.9) X10*3/uL [place] # (Auto) (0.1-1.2) X10*3/uL Eos # (Auto) (0.0-0.4) X10*3/uL Baso # (Auto) (0.0-0.2) X10*3/uL Abs Immat Gran (auto) (0.00-0.03) X10*3/uL Absolute Neuts (auto) (2.0-8.3) x10*3/uL Absolute Nucleated RBC (0.0-0.012) X10*3/uL Nucleated RBC % (auto) (0.0-0.2) /100WBC Sodium 139 (135-145) mmol/L Potassium 3.9 (3.3-5.1) mmol/L Chloride 105 (96-108) mmol/L Carbon Dioxide 27 (22-29) mmol/L Anion Gap 11 L (12-20) BUN 18 H (9-16) mg/dL Creatinine 0.86 (0.5-1.4) mg/dL Estim Creat Clear Calc 110.1 Estimated GFR > 60 Random Glucose 117 H (60-115) mg/dL Lactic Acid 1.5 (0.5-2.0) mmol/L Calcium 8.6 D (8.4-10.2) mg/dL Magnesium 2.3 (1.6-2.6) mg/dL Total Bilirubin 0.2 (0.0-1.0) mg/dL AST 34 H D (5-31) U/L ALT 57 H (0-31) U/L Alkaline Phosphatase 91 (39-117) U/L Total Protein 6.2 L (6.5-8.0) g/dL Albumin 3.7 (3.5-5.0) g/dL Urine Color Urine Appearance Urine pH (5.0-8.0) Ur Specific Caret (1.005-1.025) Urine Protein (NEG-TRACE) MG/DL Urine Glucose (UA) (NEG) MG/DL Urine Ketones (NEG) MG/DL Urine Blood (NEG) Urine Nitrite (NEG) Ur Leukocyte Esterase (NEG) Urine RBC (0) /HPF Urine WBC (0-4) /HPF Ur Squamous Epith Cells /LPF Urine Bacteria /LPF Urine Test (NEGATIVE) <JAMI Powell - Last Filed: 02/16/22 22:56> Critical Care Time Critical Care Time Critical Care Time: Yes <JAMI Juarez - Last Filed: 02/16/22 18:21> Total Critical Care Time: 60 <JAMI Juarez - Last Filed: 02/16/22 18:21> Attestation: I personally attest to this time spent taking care of the patient <JAMI Juarez - Last Filed: 02/16/22 18:21> Discharge Plan Discharge Clinical Impression: UTI (urinary tract infection) <JAMI Juarez Last Filed: 02/16/22 18:21> Instructions: Urinary Tract Infection in Women (DC) <JAMI Juarez - Last Filed: 02/16/22 18:21> Additional Instructions: You have pending lab results if any are positive you will be contacted. <JAMI Juarez Last Filed: 02/16/22 18:21> Prescriptions: No Action methadone tablet 163 mg PO DAILY 0RF Hold Instructions: Pt to return to Methadone provider for ongoing treatment Rx Instructions: dose was confirmed at [facility] on 04/19/21. Last dose was at 0842 on 04/18/21 Narcan 4 mg/actuation spray,non-aerosol 4 mg intranasal Q2M PRN (Reason: opioid overdose) Qty: 2 0RF Rx Instructions: spray 1 dose into ONE nostril; alternate nostrils w each dose until help arrives gabapentin 600 mg tablet 1 tab PO TID Qty: 21 4RF Rx Instructions: picked up on 04/06/21 30 day supply clonazepam 1 mg tablet 1 tab PO BID Qty: 14 4RF Rx Instructions: picked up on 04/07/21 28 day supply topiramate 100 mg tablet 1 tab PO DAILY Qty: 7 4RF Label Comments: picked up 03/31/21 30 day supply <JAMI Juarez - Last Filed: 02/16/22 18:21> Referrals: Hermes Arnett, DO [Primary Care Provider] - 2 days <JAMI Juarez - Last Filed: 02/16/22 18:21>
[2022-02-16 18:22] LABS: MANUAL DIFF FLAG NO
[2022-02-16 18:29] LABS: Lactic Acid 1.5 mmol/L (0.5-2.0)
[2022-02-16 18:40] LABS: Basophils Percent Auto 0.5 % (0-2); Hemoglobin 12.6 g/dl (12.0-16.0); PLT CLUMP 1; Red Cell Distribution Width 13.2 % (11.0-16.0); SCAN SMEAR FLAG 1
[2022-02-16 18:42] LABS: Eosinophils Absolute Auto 0.3 X10*3/uL (0.0-0.4); Eosinophils Percent Auto 5.1 % (0-4); Hematocrit 38.2 % (37.0-47.0); Imm Gran Abs Auto 0.01 X10*3/uL (0.00-0.03); Imm Gran Pct Auto 0.2 % (0.0-0.4); Lymphocytes Absolute Auto 1.9 X10*3/uL (1.2-4.9); Lymphocytes Percent Auto 34.9 % (20-40); Mean Platelet Volume 11.7 fL (9.4-12.3); Monocytes Absolute Auto 0.5 X10*3/uL (0.1-1.2); Monocytes Percent Auto 9.1 % (2-11); Neutrophils Absolute Auto 2.8 x10*3/uL (2.0-8.3); Neutrophils Percent Auto 50.2 % (45-73)
[2022-02-16 19:09] LABS: Platelet Count 107 X10*3/uL (160-400); White Blood Count 5.5 X10*3/uL (4.8-10.8)
[2022-02-16] MEDS: 0.9 % Sodium Chloride 1,000 ML 999 ML IVCONT (19:53)
[2022-02-16] MEDS: levoFLOXacin/D5W 750 MG/150 ML PIGGYBACK 100 MG IV (19:54)
[2022-02-16] MEDS: Ketorolac Tromethamine 30 MG/ML VIAL IVPUSH (19:54)
--- NOTE | 2022-02-16 20:07 | MHC.RECOVSUP ---
? Reason for consult Recovery support o Current location: [id number] o Identified substance use concern: Heroin - Overdose - Withdrawal - Seeking ATS (detox) - Support ? Intervention: <del>o</del> <del>ATS</del> <del>bed</del> <del>search</del> <del>started/completed/in</del> <del>process</del> <del>o</del> <del>MAT</del> <del>started</del> <del>or</del> <del>to</del> <del>be</del> <del>started</del> <del>o</del> <del>Community</del> <del>resources</del> <del>provided</del> o Harm reduction discussion ? Plan: o <del>Referral</del> <del>to</del> <del>[facility]</del> <del>o</del> <del>Bed</del> <del>search</del> <del>in</del> <del>progress</del> <del>to</del> o Follow up tomorrow o Patient awaiting crisis evaluation <del>o</del> <del>Patient</del> <del>to</del> <del>follow</del> <del>up</del> <del>with</del> <del>[facility]</del> <del>after</del> <del>discharge</del> ? Additional information: Met with patient and patient stated that she in a program ([facility]) And she stated that her meds are off.. and that she needs help.. She stated that he has lots of money and he feels like using... I spoke with the care team, and they stated that patient needs to be seen by n..
[2022-02-16 20:10] LABS: Alanine Aminotransferase 57 U/L (0-31); Albumin Level 3.7 g/dL (3.5-5.0); Alkaline Phosphatase 91 U/L (39-117); Anion Gap 11 (12-20); Aspartate Amino Transferase 34 U/L (5-31); Bilirubin Total 0.2 mg/dL (0.0-1.0); Blood Urea Nitrogen 18 mg/dL (9-16); Calcium 8.6 mg/dL (8.4-10.2); Carbon Dioxide 27 mmol/L (22-29); Chloride 105 mmol/L (96-108); Creatinine Clr Calc Pharmacy 110.1; Estimated Glomerular Filt Rate > 60; Glucose Random 117 mg/dL (60-115); Magnesium 2.3 mg/dL (1.6-2.6); Potassium 3.9 mmol/L (3.3-5.1); Sodium 139 mmol/L (135-145); Total Protein 6.2 g/dL (6.5-8.0)
--- NOTE | 2022-02-16 20:21 | PC.NURSE ---
PT DOES NOT LIKE HER NURSING HOME AND STATESSHE WANT TO LEAVE AND USE BECAUSE SHE DOESNT LIKE HER PLACEMENT. PT SPOKE WITH NUT RO[employer]ER HELPER AND THEN SHE TOLD HIME SHE WANTED TO HARM SOMEONE AT THE [facility] SO HE SPOKE Christine ZARATE AND THEY SAID SHE NEEDS TO BE SEEN BY [facility] WHO WILL NOT BE IN TO TOMORROW JAMI VALDEZ AWARE.
[2022-02-16] MEDS: iohexoL 350 MG/ML 100 ML INFUS..BTL IV (20:22)
[2022-02-17 02:23] VITALS: BP 109/67; PULSE 77; RESP 17; TEMP 36.3; O2SAT 100
[2022-02-17 06:27] VITALS: BP 103/59; PULSE 77; RESP 18; TEMP 36.6; O2SAT 96
[2022-02-17 12:23] LABS: BV Int Neg Control Negative (Negative); BV Int Pos Control Positive (Positive)
== END 2022-02-17 06:45 | disposition home or self-care (01) ==
PROVIDERS: Physician Assistant Medical; Emergency Provider Emergency Medicine Emergency Medical Services; PCP Family Medicine
DX: N39.0 Urinary tract infection, site not specified (principal); R10.9 Unspecified abdominal pain; R45.850 Homicidal ideations; F11.20 Opioid dependence, uncomplicated; F17.200 Nicotine dependence, unspecified, uncomplicated; Z87.440 Personal history of urinary (tract) infections; Z87.442 Personal history of urinary calculi; Z72.89 Other problems related to lifestyle
CPT/HCPCS: 36415; 74177; 80053; 81001; 81025; 83605; 83735; 85025; 87040; 87086; 87480; 87510; 87660; 96361; 96365; 96375; 99284; 99291; J1885; J1956; Q9967